=== PATIENT | male | born 1980 | race Caucasian/White ===

== ENCOUNTER → 2016-05-06 | Outpatient (REF) ==
[~2016-05-06] MED LIST: CEPHALEXIN500 M1; EPIPEN 2-PAK1 MG/ML IM; MEDROL 4MG DOSPA4 MG PO; NO HOME MEDICATIONS
== END ==
LOC: WSOH 12:45
DX: Z11.1 Encounter for screening for respiratory tuberculosis (principal)

== ENCOUNTER → 2016-05-15 | Outpatient (REF) | LOC: WSOH 09:51 | DX: Z00.00 Encounter for general adult medical examination without abnormal findings (principal) ==